=== PATIENT | female | born 2000 | race Caucasian/White ===

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

== ENCOUNTER 2018-07-22 13:15 | Emergency (ER) | payer MEDICAID, OTHER ==
[2018-07-22 13:57] VITALS: BP 120/62
[2018-07-22] MEDS ORDERED: Metoclopramide TAB* 10 MG PO ONE (14:54)
--- NOTE | 2018-07-22 14:59 | UC ---
Nausea/Vomiting/Diarrhea HPI - HPI Summary HPI Summary: 17-year-old woman comes to clinic today with a chief complaint of nausea vomiting diarrhea and body aches. Patient is 10 weeks . Patient started with nausea and vomiting yesterday. She also has upper abdominal pain started after the vomiting. During the night she started having diarrhea. She also has generalized body aches. Denies any fevers or chills. She's had 1 prior she did not have any nausea and vomiting with that . Attempting to eat makes the nausea and vomiting worse. Vomiting makes the upper abdominal pain worse. She has been a little bit lightheaded. - History of Current Complaint Chief Complaint: UCGeneralIllness Stated Complaint: ACHY, DIARRHEA (10 WKS PREG) Time Seen by Provider: 07/22/18 14:44 Hx Last Menstrual Period: last month Pain Intensity: 6 - Allergies/Home Medications Allergies/Adverse Reactions: Allergies Allergy/AdvReac Type Severity Reaction Status Date / Time amoxicillin [From Augmentin] Allergy Intermediate Hives Verified 12/21/17 15:34 clavulanic acid Allergy Intermediate Hives Verified 12/21/17 15:34 [From Augmentin] Home Medications: Home Medications Vit37/Iron/Folic Acid [Prenata Chewable Tablet] 1 each PO DAILY [History Confirmed 07/22/18] PMH/Surg Hx/FS Hx/Imm Hx Previously Healthy: Yes - no history of diabetes - Surgical History Surgical History: None - Family History Known Family History: Positive: Cardiac Disease, Hypertension Negative: Diabetes - Social History Alcohol Use: None Substance Use Type: None Smoking Status (MU): Never Smoked Tobacco Review of Systems Constitutional: Negative Skin: Other - Patient has small petechiae on her face from the vomiting Eyes: Negative ENT: Negative Respiratory: Negative Cardiovascular: Negative Gastrointestinal: Abdominal Pain, Vomiting, Diarrhea, Nausea Genitourinary: Negative Motor: Negative Neurovascular: Negative Musculoskeletal: Negative Neurological: Negative Psychological: Negative Is Patient Immunocompromised?: No All Other Systems Reviewed And Are Negative: Yes Physical Exam Triage Information Reviewed: Yes Appearance: No Pain Distress, Well-Nourished, Ill-Appearing - mild Vital Signs: Initial Vital Signs Temp 97.6 F 07/22/18 13:53 Pulse 88 07/22/18 13:53 Resp 14 07/22/18 13:53 BP 120/62 07/22/18 13:53 Pulse Ox 100 07/22/18 13:53 Vital Signs Reviewed: Yes Eye Exam: Normal Eyes: Positive: Conjunctiva Clear ENT: Positive: Pharynx normal Neck exam: Normal Neck: Positive: Supple Respiratory: Positive: Lungs clear, Normal breath sounds, No respiratory distress Abdomen Description: Positive: Other: - There is tenderness to palpation in the upper abdomen primarily in the epigastrium. There is no guarding there is no rebound. Bowel Sounds: Positive: Present Musculoskeletal Exam: Normal Musculoskeletal: Positive: Strength Intact, ROM Intact, No Edema Neurological Exam: Normal Neurological: Positive: Alert, Muscle Tone Normal Psychological Exam: Normal Psychological: Positive: Age Appropriate Behavior Skin: Positive: Other - Patient has petechiae on her face secondary to vomiting. Naus/Vom/Diarrhea Course/Dx - Course Course Of Treatment: Nausea is decreased after taking the Reglan. The upper abdominal pain started after the nausea and vomiting. We discussed the possibility of gallbladder as being the source of the pain. However since the nausea and vomiting started first I believe the upper abdominal pain is secondary to the nausea and vomiting. Here in the clinic she is improved somewhat with the Reglan. The overall plan is to prescribe Reglan and and as long as her pain goes away and she is not getting dehydrated has no fevers than she can follow-up with her primary medic medical doctor or the CUST[facility]ER EXPERIENCE ANALYST. However if she develops fevers continues to vomit feels dehydrated the pain does not go away or worsens she needs to go to the emergency department. - Differential Dx/Diagnosis Provider Diagnoses: DEHYDRATION. NAUSEA. VOMITING. DIARRHEA. UPPER ABDOMINAL PAIN Discharge - Sign-Out/Discharge Documenting (check all that apply): Patient Departure All imaging exams completed and their final reports reviewed: No Studies - Discharge Plan Condition: Stable Disposition: HOME Prescriptions: Metoclopramide TAB* [Reglan TAB*] 10 mg PO Q6H PRN #10 tab PRN Reason: Nausea Patient Education Materials: Dehydration (ED), Acute Nausea and Vomiting (ED), Abdominal Pain in (ED) Referrals: [facility] [place] [facility] [Outside] Additional Instructions: FOLLOW UP WITH YOUR DOCTOR. GO TO THE EMERGENCY DEPARTMENT FOR ANY WORSENING OF YOUR CONDITION; PAIN, FEVER , DEHYDRATION OR QUESTIONS OR CONCERNS. - Billing Disposition and Condition Condition: STABLE Disposition: Home
== END 2018-07-22 16:04 | disposition home or self-care (01) ==
LOC: UCCORT 13:15
DX: O21.1 Hyperemesis gravidarum with metabolic disturbance (principal); Z3A.10 10 weeks gestation of pregnancy; O26.891 Other specified pregnancy related conditions, first trimester; R19.7 Diarrhea, unspecified; R10.10 Upper abdominal pain, unspecified; Z88.0 Allergy status to penicillin; Z88.8 Allergy status to other drugs, medicaments and biological substances
CPT/HCPCS: 99212; A9270-GY; G0463

== ENCOUNTER 2019-03-08 08:12 | Emergency (ER) | payer OTHER ==
[2019-03-08 08:27] VITALS: BP 110/71
--- NOTE | 2019-03-08 08:38 | UC ---
Throat Pain/Nasal Joseph HPI - HPI Summary HPI Summary: sore throat x 1 days woke up this morning with severe sore throat, pain is 7 out of 10 , worse with eating , nothing make it wilmer no fever, + chills, runny nose, no cough + chills, body aches - History of Current Complaint Chief Complaint: UCGeneralIllness Stated Complaint: NAUSEA Time Seen by Provider: 03/08/19 08:25 Hx Obtained From: Patient Hx Last Menstrual Period: last month ?: No Onset/Duration: Gradual Onset, Lasting Days - 1, Still Present Severity: Moderate Pain Intensity: 7 Cough: Nonproductive Associated Signs & Symptoms: Positive: Nasal Discharge. Negative: Dysphagia, FB Sensation, Drooling, Wheezing, Hoarseness, Sinus Discomfort, Fever, Vomiting , Rash - Allergies/Home Medications Allergies/Adverse Reactions: Allergies Allergy/AdvReac Type Severity Reaction Status Date / Time amoxicillin [From Augmentin] Allergy Intermediate Hives Verified 03/08/19 08:28 clavulanic acid Allergy Intermediate Hives Verified 03/08/19 08:28 [From Augmentin] PMH/Surg Hx/FS Hx/Imm Hx Previously Healthy: Yes - Surgical History Surgical History: None - Family History Known Family History: Positive: Cardiac Disease, Hypertension Negative: Diabetes - Social History Alcohol Use: Occasionally Substance Use Type: None Smoking Status (MU): Never Smoked Tobacco Review of Systems All Other Systems Reviewed And Are Negative: Yes Constitutional: Positive: Chills, Fatigue Skin: Positive: Negative Eyes: Positive: Negative ENT: Positive: Sore Throat, Nasal Discharge Respiratory: Positive: Cough Cardiovascular: Positive: Negative Is Patient Immunocompromised?: No Physical Exam Triage Information Reviewed: Yes Appearance: Well-Appearing, No Pain Distress, Well-Nourished Vital Signs: Initial Vital Signs Temp 99.1 F 03/08/19 08:22 Pulse 139 03/08/19 08:22 Resp 16 03/08/19 08:22 BP 110/71 03/08/19 08:22 Pulse Ox 98 03/08/19 08:22 Vital Signs Reviewed: Yes Eye Exam: Normal Eyes: Positive: Conjunctiva Clear ENT: Positive: Normal ENT inspection, Hearing grossly normal, Pharyngeal erythema, TMs normal. Negative: Nasal congestion, Nasal drainage, TM bulging, TM dull, TM red, Tonsillar swelling, Tonsillar exudate Neck: Positive: Supple, Nontender, No Lymphadenopathy Respiratory: Positive: Chest non-tender, Lungs clear, Normal breath sounds Cardiovascular: Positive: Tachycardia Abdominal Exam: Normal Abdomen Description: Positive: Nontender, Soft Skin Exam: Normal Throat Pain/Nasal Course/Dx - Differential Dx/Diagnosis Provider Diagnosis: Pharyngitis Discharge - Sign-Out/Discharge Documenting (check all that apply): Patient Departure All imaging exams completed and their final reports reviewed: No Studies - Discharge Plan Condition: Stable Disposition: HOME Prescriptions: Ondansetron ODT TAB* [Zofran 4 MG Odt TAB*] 8 mg PO Q8H PRN #6 tab.odt PRN Reason: Nausea/Vomiting Patient Education Materials: Pharyngitis (ED), Acute Nausea and Vomiting (ED) Referrals: No Primary Care Phys,NOPCP [Primary Care Provider] - If Needed - Billing Disposition and Condition Condition: STABLE Disposition: Home
== END 2019-03-08 08:55 | disposition home or self-care (01) ==
LOC: UCCORT 08:12
DX: J02.9 Acute pharyngitis, unspecified (principal); Z88.0 Allergy status to penicillin
CPT/HCPCS: 87651; 99212; G0463

== ENCOUNTER 2019-03-22 15:02 | Emergency (ER) | payer OTHER ==
[2019-03-22 15:28] VITALS: BP 118/74
[2019-03-22] MEDS ORDERED: Ibuprofen TAB* 400 MG PO ONE (16:21)
--- NOTE | 2019-03-22 16:22 | ED ---
Throat Pain/Nasal Congestion - HPI Summary HPI Summary: 18 yr old with the complaint of sore throat. Onset two weeks ago. Associated with some fever up to 101 Tmax. She has had some sinus congestion and runny nose at times. No drooling, no stridor. No SOB. - History of Current Complaint Chief Complaint: UCGeneralIllness Time Seen by Provider: 03/22/19 15:24 - Allergies/Home Medications Allergies/Adverse Reactions: Allergies Allergy/AdvReac Type Severity Reaction Status Date / Time amoxicillin [From Augmentin] Allergy Intermediate Hives Verified 03/08/19 08:28 clavulanic acid Allergy Intermediate Hives Verified 03/08/19 08:28 [From Augmentin] PMH/Surg Hx/FS Hx/Imm Hx Endocrine/Hematology History: Denies: Hx Diabetes, Hx Thyroid Disease Cardiovascular History: Denies: Hx Hypertension Respiratory History: Denies: Hx Asthma, Hx Chronic Obstructive Pulmonary Disease (COPD) GI History: Denies: Hx Ulcer Infectious Disease History: No Infectious Disease History: Denies: Hx Hepatitis, Hx Human Immunodeficiency Virus (HIV), Traveled Outside the in Last 30 Days - Family History Known Family History: Positive: Cardiac Disease, Hypertension Negative: Diabetes - Social History Occupation: Employed Full-time Alcohol Use: None Substance Use Type: Reports: None Smoking Status (MU): Never Smoked Tobacco Review of Systems Positive: Fever, Chills Positive: Sore Throat, Nasal Discharge All Other Systems Reviewed And Are Negative: Yes Physical Exam Triage Information Reviewed: Yes Vital Signs On Initial Exam: Initial Vitals Temp Pulse Resp BP Pulse Ox 100 F 120 20 118/74 100 03/22/19 15:22 03/22/19 15:22 03/22/19 15:22 03/22/19 15:22 03/22/19 15:22 Vital Signs Reviewed: Yes Appearance: Positive: Well-Appearing, No Pain Distress Skin: Positive: Warm, Skin Color Reflects Adequate Perfusion Head/Face: Positive: Normal Head/Face Inspection Eyes: Positive: EOMI, JOSEFINA ENT: Positive: Pharyngeal erythema, TMs normal. Negative: Tonsillar swelling, Tonsillar exudate, Trismus, Muffled voice, Hoarse voice, Sinus tenderness Neck: Positive: Nontender Respiratory/Lung Sounds: Positive: Clear to Auscultation, Breath Sounds Present Cardiovascular: Positive: RRR. Negative: Murmur Abdomen Description: Negative: Distended Musculoskeletal: Positive: Strength/ROM Intact Neurological: Positive: Sensory/Motor Intact, Alert, Oriented to Person Place, Time, CN Intact II-III, Normal Gait, Speech Normal Psychiatric: Positive: Normal - Gillett Coma Scale Best Eye Response: 4 - Spontaneous Best Motor Response: 6 - Obeys Commands Best Verbal Response: 5 - Oriented Coma Scale Total: 15 Diagnostics - Vital Signs Vital Signs Temp Pulse Resp BP Pulse Ox 03/22/19 15:22 100 F 120 20 118/74 100 - Laboratory Lab Results: Lab Results 03/22/19 Range/Units 15:32 Group A Strep Rapid Negative (Negative) Lab Statement: Any lab studies that have been ordered have been reviewed, and results considered in the medical decision making process. EENT Course/Dx - Course Course Of Treatment: 18 yr old with pharyngitis. mono spot sent. The rapid strep neg. FU with PMD. To ER for any worsening symptoms. - Diagnoses Provider Diagnoses: Pharyngitis Discharge - Sign-Out/Discharge Documenting (check all that apply): Patient Departure All imaging exams completed and their final reports reviewed: No Studies - Discharge Plan Condition: Good Disposition: HOME Patient Education Materials: Pharyngitis (ED) Referrals: No Primary Care Phys,NOPCP [Primary Care Provider] - [facility] [place] [facility] [Outside] - Billing Disposition and Condition Condition: GOOD Disposition: Home
[2019-03-24 11:46] LABS: EBV Capsid Ag IgG Ab Positive (Negative); EBV Capsid Ag IgM Ab Negative (Negative); Epstein-Barr Nuclear Antigen Positive (Negative)
--- NOTE | 2019-03-25 07:36 | UC ---
- Progress Note Progress Note: Franci-Case virus testing: Consistent with past infection( EBV capsid IgM is negative, EBV capsid IgG and EBNA positive) Monospot was negative Likely a viral infection No change in plan Course/Dx - Diagnoses Provider Diagnoses: Pharyngitis Discharge - Sign-Out/Discharge Documenting (check all that apply): Post-Discharge Follow Up All imaging exams completed and their final reports reviewed: No Studies - Discharge Plan Condition: Good Disposition: HOME Patient Education Materials: Pharyngitis (ED) Referrals: [facility] [place] [facility] [Outside] No Primary Care Phys,NOPCP [Primary Care Provider] - - Billing Disposition and Condition Condition: GOOD Disposition: Home
== END 2019-03-22 16:34 | disposition home or self-care (01) ==
LOC: UCCORT 15:02
DX: J02.9 Acute pharyngitis, unspecified (principal)
CPT/HCPCS: 36415; 86308; 86664; 86665; 87651; 99212; A9270-GY; G0463

== ENCOUNTER 2019-09-10 11:45 | Emergency (ER) | payer OTHER ==
[2019-09-10 12:06] VITALS: BP 114/69
--- NOTE | 2019-09-10 12:18 | UC ---
Throat Pain/Nasal Joseph HPI - HPI Summary HPI Summary: Woke up with a "lump" in throat three days ago. Sore throat aggrevated by swallowing/talking and difficulty sleeping for one day. No known fever. Patient wants a strep test. - History of Current Complaint Chief Complaint: UCGeneralIllness Stated Complaint: ST Time Seen by Provider: 09/10/19 12:12 Hx Obtained From: Patient Hx Last Menstrual Period: 08/29/19 ?: No Onset/Duration: Sudden Onset, Lasting Days Severity: Moderate Pain Intensity: 5 Associated Signs & Symptoms: Positive: Dysphagia - Allergies/Home Medications Allergies/Adverse Reactions: Allergies Allergy/AdvReac Type Severity Reaction Status Date / Time clavulanic acid Allergy Intermediate Hives Verified 09/10/19 12:02 [From Augmentin] Home Medications: Home Medications Ibuprofen TAB* [Advil TAB*] 400 mg PO Q6H PRN 09/10/19 [History Confirmed ] PMH/Surg Hx/FS Hx/Imm Hx Previously Healthy: Yes - Surgical History Surgical History: None - Family History Known Family History: Positive: Cardiac Disease, Hypertension Negative: Diabetes - Social History Alcohol Use: None Substance Use Type: None Smoking Status (MU): Current Some Day Smoker Type: eCigarettes Review of Systems All Other Systems Reviewed And Are Negative: Yes ENT: Positive: Sore Throat Is Patient Immunocompromised?: No Physical Exam Triage Information Reviewed: Yes Appearance: Well-Nourished, Ill-Appearing, Pain Distress Vital Signs: Initial Vital Signs Temp 98.1 F 09/10/19 11:59 Pulse 120 09/10/19 11:59 Resp 16 09/10/19 11:59 BP 114/69 09/10/19 11:59 Pulse Ox 99 09/10/19 11:59 Vital Signs Reviewed: Yes Eye Exam: Normal ENT: Positive: Pharyngeal erythema, TM bulging, Tonsillar swelling, Tonsillar exudate Dental Exam: Normal Neck exam: Normal Respiratory Exam: Normal Respiratory: Positive: Chest non-tender, Lungs clear, Normal breath sounds Cardiovascular Exam: Normal Cardiovascular: Positive: RRR, No Murmur, Pulses Normal Abdominal Exam: Normal Bowel Sounds: Positive: Present Musculoskeletal Exam: Normal Neurological Exam: Normal Psychological Exam: Normal Skin Exam: Normal Throat Pain/Nasal Course/Dx - Course Course Of Treatment: hx obtained, exam performed ,meds reviewed, rapid strep obtained and was negative. [place] spot drawn and prednisone given for inflammation of the throat. - Differential Dx/Diagnosis Differential Diagnosis/HQI/PQRI: Mononucleosis, Otitis Media, Pharyngitis, Sinusitis, URI Provider Diagnosis: Viral pharyngitis Discharge ED - Sign-Out/Discharge Documenting (check all that apply): Patient Departure All imaging exams completed and their final reports reviewed: No Studies - Discharge Plan Condition: Stable Disposition: HOME Patient Education Materials: Pharyngitis (ED) Referrals: No Primary Care Phys,NOPCP [Primary Care Provider] - Additional Instructions: 1. Your blood draw should be available tomorrow 2. Take the prednisone as prescribed. 3. Warm tea, increased fluids and get rest. 4. ibuprofen as needed. - Billing Disposition and Condition Condition: STABLE Disposition: Home
[2019-09-12 11:48] LABS: EBV Capsid Ag IgG Ab Positive (Negative); EBV Capsid Ag IgM Ab Negative (Negative); Epstein-Barr Nuclear Antigen Positive (Negative)
== END 2019-09-10 12:48 | disposition home or self-care (01) ==
LOC: UCCORT 11:45
DX: J02.9 Acute pharyngitis, unspecified (principal); F17.290 Nicotine dependence, other tobacco product, uncomplicated; Z88.0 Allergy status to penicillin
CPT/HCPCS: 36415; 86308; 86664; 86665; 87651; 99212; G0463